=== PATIENT | female | born 1970 | race Caucasian/White ===

== ENCOUNTER 2017-09-27 07:53 | Emergency (ER) | payer SELFPAY ==
[2017-09-27 08:18] VITALS: BP 129/77
[2017-09-27] MEDS ORDERED: Clindamycin CAP* 150 MG PO ONE (08:41)
--- NOTE | 2017-09-27 08:49 | UC ---
Dental HPI - HPI Summary HPI Summary: 46 yo female had dental procedure 4-5 days ago 6/10 pain left facial swelling chills swollen left sided neck glands - History of Current Complaint Chief Complaint: UCDentalProblem Stated Complaint: LEFT SIDE FACE/DENTAL COMPLAINT Time Seen by Provider: 09/27/17 08:29 Hx Obtained From: Patient Hx Last Menstrual Period: "last month" Onset/Duration: Gradual Onset, Lasting Days Severity: Moderate Pain Intensity: 6 - declines analgesic Pain Scale Used: 0-10 Numeric Aggravating Factor(s): Heat, Cold, Chewing Alleviating Factor(s): Nothing Related History: Swelling - Allergies/Home Medications Allergies/Adverse Reactions: Allergies Allergy/AdvReac Type Severity Reaction Status Date / Time Penicillins Allergy Severe hives, Verified 09/27/17 08:19 difficulty breathing PMH/Surg Hx/FS Hx/Imm Hx Previously Healthy: Yes - Surgical History Surgical History: None - Family History Known Family History: Positive: Hypertension - Social History Alcohol Use: None Substance Use Type: None Smoking Status (MU): Never Smoked Tobacco Review of Systems Constitutional: Negative Skin: Negative Eyes: Negative ENT: Dental Pain Respiratory: Negative Cardiovascular: Negative Gastrointestinal: Negative Genitourinary: Negative Motor: Negative Neurovascular: Negative Musculoskeletal: Negative Neurological: Negative Psychological: Negative Is Patient Immunocompromised?: No All Other Systems Reviewed And Are Negative: Yes Physical Exam Triage Information Reviewed: Yes Appearance: Well-Appearing, No Pain Distress, Well-Nourished Vital Signs: Initial Vital Signs Temp 100.0 F 09/27/17 08:12 Pulse 71 09/27/17 08:12 Resp 18 09/27/17 08:12 BP 129/77 09/27/17 08:12 Pulse Ox 100 09/27/17 08:12 Vital Signs Reviewed: Yes Eyes: Positive: Conjunctiva Clear ENT: Positive: Hearing grossly normal, Uvula midline. Negative: Nasal congestion, Nasal drainage, Tonsillar swelling, Tonsillar exudate, Trismus, Muffled voice, Hoarse voice Dental: Positive: Other: - see image Neck: Positive: Enlarged Nodes @ - left ant cerv Respiratory: Positive: Lungs clear, Normal breath sounds, No respiratory distress, No accessory muscle use Cardiovascular: Positive: RRR, No Murmur, Pulses Normal Musculoskeletal: Positive: ROM Intact, No Edema Neurological: Positive: Alert Psychological Exam: Normal Skin Exam: Normal Dental Complaint Course/Dx - Differential Dx/Diagnosis Provider Diagnoses: Acute dentalgia Discharge - Sign-Out/Discharge Documenting (check all that apply): Discharge - Discharge Plan Condition: Stable Disposition: HOME Prescriptions: Clindamycin HCl 150 mg PO QID #28 capsule Patient Education Materials: Probiotic (By mouth), Toothache (ED) Referrals: No Primary Care Phys,NOPCP [Primary Care Provider] - Additional Instructions: see your dentist first available appt if symptoms worsen go to the ER ibuprofen - Billing Disposition and Condition Condition: STABLE Disposition: HOME Images Dental: 1 - red/slight swelling/inflammed looking
== END 2017-09-27 08:50 | disposition home or self-care (01) ==
LOC: UCCORT 07:53
DX: K08.89 Other specified disorders of teeth and supporting structures (principal); Z88.0 Allergy status to penicillin
CPT/HCPCS: 99202; A9270-GY; G0463